=== PATIENT | female | born 1960 | race Caucasian/White ===

== ENCOUNTER → 2019-05-23 | Day surgery (SDC) | payer OTHER, MEDICARE ==
--- NOTE | 2019-05-19 11:36 | Diagnostic Imaging Report ---
EXAMINATION: CHEST 2 VIEWS INDICATION: Pre-operative COMPARISON: None FINDINGS: LINES/TUBES:None LUNGS:The lungs are hyperinflated. Bilateral upper lobe predominant emphysema. No focal consolidation or pulmonary edema. PLEURA:No pleural effusion or pneumothorax. MEDIASTINUM:The cardiomediastinal silhouette appears normal in size and shape. Atherosclerotic calcifications of the thoracic aorta. BONES/SOFT TISSUES:No acute osseous injury. ABDOMEN:No free air under the diaphragm. IMPRESSION: Hyperinflated lungs and bilateral upper lobe predominant emphysema. No focal pneumonia or pulmonary edema. Signed by: Laquita Bal MD on 05/19/2019 11:33 AM
[~2019-05-23] MED LIST: ACETAMINOPHEN 1000 MG/100 ML 100 ML IV ONE; ALBUTEROL SULFATE HFA 8GM INHALATION AEROSOL INH ONE; ALEVE220 M1 PO; AMOXICILLIN500 MG PO; BACITRACIN 50,000 UNIT VIAL ONE; BENADRYL25 M1 PO; BIOTIN0.5 GM; BIOTIN0.5 GM PO; BUPIVACAINE HCL 0.5% INJ 30 ML VIAL INJ ONE; CEFAZOLIN SOD 1 GM/NS 50ML 50 ML IV ONE; DEXAMETHASONE SOD PHOS INJ 4 MG/ML VIAL ONE; EPHEDRINE SULFATE INJ 50 MG/10 ML SYR ONE; FENTANYL CITRATE/PF 100MCG/2 ML INJ ONE; HYDROMORPHONE 1MG/1ML INJ ONE; LIDOCAINE HCL 2% JELLY 5 ML TUBE ONE; LIDOCAINE HCL 2% LOCAL INJ 5 ML SDV VIAL INJ ONE; LORAZEPAM1 MG PO; METHOCARBAMOL750 MG PO; MIDAZOLAM HCL 2 MG/2 ML VIAL ONE; MULTI-VITAMIN1 EACH PO; ONDANSETRON HCL INJ 2MG/ML 2ML 2 MG/ML VIAL ONE; PHENERGAN PO; PROPOFOL IV EMULSION 10 MG/ML 20 ML VIAL ONE; SEVOFLURANE INHAL SOLN 250 ML PEN BTL ONE; ULTRAM50 MG PO; VITAMIN D1000 UNI1 PO
--- OUTSIDE RECORDS SUMMARY | 2019-05-23 05:11 | XMS REPORT ---
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 Allergies, Adverse Reactions, Alerts This patient has no known allergies or adverse reactions. Medications This patient has no known medications. Results Test Description Test Time Test Comments Text Results Atomic Results Result Comments CHEST 2 VIEWS 2019-05-19 11:32:00 [place] [address] Patient Name: SANDY SKINNER MR #: [id number] : 1960 Age/Sex: 58/F Req #: [id number] Adm Physician: Ordered by: AD BRANNON MD Report #: [id number] Location: OR Room/Bed: Procedure: [id number] DX/CHEST 2 VIEWS Exam Date: 05/19/19 Exam Time: 1105 REPORT STATUS: Signed EXAMINATION: CHEST 2 VIEWS INDICATION: Pre-operative COMPARISON: None FINDINGS: LINES/TUBES:None LUNGS:The lungs are hyperinflated. Bilateral upper lobe predominant emphysema. No focal consolidation or pulmonary edema. PLEURA:No pleural effusion or pneumothorax. MEDIASTINUM:The cardiomediastinal silhouette appears normal in size and shape. Atherosclerotic calcifications of the thoracic aorta. BONES/SOFT TISSUES:No acute osseous injury. ABDOMEN:No free air under the diaphragm. IMPRESSION: Hyperinflated lungs and bilateral upper lobe predominant emphysema. No focal pneumonia or pulmonary edema. Signed by: Flori Bal MD on 05/19/2019 11:33 AM Dictated By: FLORI BAL MD [id number] Transcribed By: RAFFY on 05/19/19 1133 COPY TO: AD BRANNON MD
[2019-05-23 09:35] VITALS: BP 137/81
--- NOTE | 2019-05-23 11:25 | Operative Report ---
DATE OF PROCEDURE: 05/23/2019 SURGEON: Wesly Feliz MD ARCHITECTURE DEPARTMENT CHAIR: Demarco Livingston PA-C. PREOPERATIVE DIAGNOSIS: Right distal radius Colles fracture. POSTOPERATIVE DIAGNOSIS: Right distal radius Colles fracture. PROCEDURE: Open reduction and internal fixation, right distal radius. INDICATIONS: The patient is a 58-year-old lady, who has a fracture of her right distal radius. The fracture is shortened and deviated. The options have been discussed with the patient. She had a similar situation a few years ago in her left wrist. She did well after an open reduction and internal fixation. She states that she would like to undergo similar operation to correct the deformity. The risks and benefits were explained. She states she understands and wishes to proceed. PROCEDURE IN DETAIL: The patient was brought to the operating room and placed under general anesthetic. Her right upper extremity was prepped and draped in a sterile manner. A preoperative time-out was performed. The extremity was exsanguinated and a proximal tourniquet was inflated to 250 mmHg. An incision was made over the distal radius. This was carried down through the floor of the flexor carpi radialis tendon sheath. Care was taken to avoid injury to the superficial branch of the median nerve. The fracture site was carefully exposed. A closed reduction was performed. A [employer] periarticular locking plate was placed over the distal radius. This was locked with a combination of compression and locking screws. An intraoperative C-arm image intensifier was used to assist in confirming good positioning of the hardware and reduction of the fracture. Her bone was somewhat osteoporotic. Final x-ray showed near anatomic alignment. The wound was irrigated and closed. Interrupted nylon stitches were used to close the skin. A sterile bandage and a sugar-tong splint were applied. The patient was extubated and transported to the recovery room in stable condition. Wesly Feliz MD DR/ALVIN /[id number]
== END | disposition home or self-care (01) ==
LOC: OR 05:00
PROVIDERS: ATTEND Specialist
DX: S52.531A Colles' fracture of right radius, initial encounter for closed fracture (principal); Z89.612 Acquired absence of left leg above knee; J44.9 Chronic obstructive pulmonary disease, unspecified; F41.9 Anxiety disorder, unspecified; F17.210 Nicotine dependence, cigarettes, uncomplicated; W18.39XA Other fall on same level, initial encounter; Y92.89 Other specified places as the place of occurrence of the external cause; Z88.6 Allergy status to analgesic agent; Z88.1 Allergy status to other antibiotic agents; Z01.810 Encounter for preprocedural cardiovascular examination; Z01.818 Encounter for other preprocedural examination
CPT/HCPCS: 25607; 71046; 93005; C1713 ×3; J0131; J0690; J1100; J1170; J2001 ×2; J2250; J2405; J2704; J3010; 76000

== ENCOUNTER 2025-06-24 20:01 | Emergency (ER) | payer MEDICARE, OTHER ==
[~2025-06-24] VITALS: Ht 151.8 cm; Wt 44.9 kg
[~2025-06-24 20:01] MED LIST changes: -ACETAMINOPHEN 1000 MG/100 ML 100 ML IV ONE; -ALBUTEROL SULFATE HFA 8GM INHALATION AEROSOL INH ONE; -BACITRACIN 50,000 UNIT VIAL ONE; -BUPIVACAINE HCL 0.5% INJ 30 ML VIAL INJ ONE; -CEFAZOLIN SOD 1 GM/NS 50ML 50 ML IV ONE; -DEXAMETHASONE SOD PHOS INJ 4 MG/ML VIAL ONE; -EPHEDRINE SULFATE INJ 50 MG/10 ML SYR ONE; -FENTANYL CITRATE/PF 100MCG/2 ML INJ ONE; -HYDROMORPHONE 1MG/1ML INJ ONE; -LIDOCAINE HCL 2% JELLY 5 ML TUBE ONE; -LIDOCAINE HCL 2% LOCAL INJ 5 ML SDV VIAL INJ ONE; -MIDAZOLAM HCL 2 MG/2 ML VIAL ONE; -ONDANSETRON HCL INJ 2MG/ML 2ML 2 MG/ML VIAL ONE; -PROPOFOL IV EMULSION 10 MG/ML 20 ML VIAL ONE; -SEVOFLURANE INHAL SOLN 250 ML PEN BTL ONE
[2025-06-24] MEDS: ONDANSETRON HCL 4 MG ORAL DISINTEGRATING TAB PO STA (21:47)
[2025-06-24] MEDS: TRAMADOL HCL 50 MG TAB PO STA (21:47)
[2025-06-24] MEDS ORDERED: ULTRAM 50MG50 MG PO (21:51)
[2025-06-24] MEDS ORDERED: PROMETHAZINE HC25 M1 PO (21:51)
[2025-06-24 22:18] VITALS: PULSE 71; RESP 18; TEMP 98.2; O2SAT 98
== END 2025-06-24 22:12 | disposition home or self-care (01) ==
LOC: ER 20:10
DX: S63.592A Other specified sprain of left wrist, initial encounter (principal); W17.89XA Other fall from one level to another, initial encounter; Y92.89 Other specified places as the place of occurrence of the external cause
CPT/HCPCS: 29125; 73110; 99284; Q0162